=== PATIENT | male | born 1990 | race Caucasian/White ===

== ENCOUNTER 2018-05-04 18:30 | Emergency (ER) | payer OTHER ==
[2018-05-04 18:36] VITALS: BP 143/91; PULSE 77; TEMP 98.2; BMI 24.8
--- NOTE | 2018-05-04 19:41 | PDOC ---
History of Present Illness - General History Source: Patient Exam Limitations: No Limitations - History of Present Illness Initial Comments: 05/04/18 20:11 The patient is a 27-year-old male, with no significant past medical history, who presents to the ED with 2-3 days of left-sided chest pain and 1 week of intermittent shortness of breath. The patient describes the chest pain as intermittent, last 3 seconds before resolving on its own, sharp in sensation, 8/ 10 in severity, nonradiating, nonexertional, and nonpleuritic. The chest pain is accompanied by shortness of breath that he states comes on when he is eating. He states that he feels like food is getting stuck in his chest and that he is not able to take in an adequate amount of oxygen. The patient reports that he was able to engage in his boxing workout routine on without feeling short of breath. He reports 1 episode of nonbilious, nonbloody emesis yesterday which has now resolved. While in the ER, the patient was complaining of feeling dizzy while sitting in the stretcher. As per , the patient would normally drinks 4-5 cups of coffee a day and he has cut back on his caffeine intake. The patient denies any fevers, chills, nausea, vomiting, diarrhea, or abdominal pain. Denies any recent sick contacts or recent travel. Denies any lower extremity swelling or changes in sensation. Allergies: NKA Surgical History: None reported. Social History: Denies any tobacco use. Family History: Pericarditis (Brother 2 years ago). <Lety Gordon - Last Filed: 05/04/18 20:24> <Glory Nina - Last Filed: 05/05/18 06:20> - General Chief Complaint: Shortness of Breath Stated Complaint: sob Time Seen by Provider: 05/04/18 19:22 Past History <Lety Gordon - Last Filed: 05/04/18 20:24> - Past Medical History COPD: No Other medical history: denies - Suicide/Smoking/Psychosocial Hx Smoking History: Never smoked Hx Alcohol Use: No Drug/Substance Use Hx: No Substance Use Type: None <Glory Nina - Last Filed: 05/05/18 06:20> - Past Medical History Allergies/Adverse Reactions: Allergies Allergy/AdvReac Type Severity Reaction Status Date / Time No Known Allergies Allergy Verified 05/04/18 18:31 Home Medications: Ambulatory Orders Pantoprazole Sodium [Protonix -] 40 mg PO DAILY #20 tablet.ec 05/04/18 Review of Systems - Review of Systems Able to Perform ROS?: Yes Comments:: 05/04/18 20:11 CONSTITUTIONAL: Absent: fever, chills, diaphoresis, generalized weakness, malaise, loss of appetite HEENT: Absent: rhinorrhea, nasal congestion, throat pain, throat swelling, difficulty swallowing, mouth swelling, ear pain, eye pain, visual Changes CARDIOVASCULAR: Present: (+)Chest pain Absent: syncope, palpitations, irregular heart rate, lightheadedness, peripheral edema RESPIRATORY: Present: (+) Shortness of breath. Absent: cough, dyspnea with exertion, orthopnea, wheezing, stridor, hemoptysis GASTROINTESTINAL: Absent: abdominal pain, abdominal distension, nausea, vomiting, diarrhea, constipation, melena, hematochezia GENITOURINARY: Absent: dysuria, frequency, urgency, hesitancy, hematuria, flank pain, genital pain MUSCULOSKELETAL: Absent: myalgia, arthralgia, joint swelling SKIN: Absent: rash, itching, pallor HEMATOLOGIC/IMMUNOLOGIC: Absent: easy bleeding, easy bruising, lymphadenopathy, frequent infections ENDOCRINE: Absent: unexplained weight gain, unexplained weight loss, heat intolerance, cold intolerance NEUROLOGIC: Present: (+)Dizziness. Absent: headache, focal weakness or paresthesias, unsteady gait, seizure, mental status changes, bladder or bowel incontinence PSYCHIATRIC: Absent: anxiety, depression, suicidal or homicidal ideation, hallucinations. <Lety Gordon - Last Filed: 05/04/18 20:24> *Physical Exam - Vital Signs Last Vital Signs Temp Pulse Resp BP Pulse Ox 98.2 F 77 18 143/91 100 05/04/18 18:31 05/04/18 18:31 05/04/18 18:31 05/04/18 18:31 05/04/18 18:31 - Physical Exam Comments: 05/04/18 20:13 GENERAL: Well developed, well nourished. Awake and alert. No acute distress. HEENT: Normocephalic, atraumatic. PERRLA, EOMI. No conjunctival pallor. Sclera are non- icteric. Moist mucous membranes. Oropharynx is clear. NECK: Supple. Full ROM. No JVD. Carotid pulses 2+ and symmetric, without bruits. No thyromegaly. No lymphadenopathy. CARDIOVASCULAR: Regular rate and rhythm. No murmurs, rubs, or gallops. Distal pulses are 2+ and symmetric. PULMONARY: No evidence of respiratory distress. Lungs clear to auscultation bilaterally. No wheezing, rales or rhonchi. ABDOMINAL: (+)Mild tenderness over the xiphoid process. Soft. Non-distended. No rebound or guarding. No organomegaly. Normoactive bowel sounds. MUSCULOSKELETAL Normal range of motion at all joints. No bony deformities or tenderness. No CVA tenderness. EXTREMITIES: No cyanosis. No clubbing. No edema. No calf tenderness. SKIN: Warm and dry. Normal capillary refill. No rashes. No jaundice. NEUROLOGICAL: Alert, awake, appropriate. Cranial nerves 2-12 intact. No deficits to light touch and temperature in face, upper extremities and lower extremities. No motor deficits in the in face, upper extremities and lower extremities. Normoreflexic in the upper and lower extremities. Normal speech. Toes are down- going bilaterally. Gait is normal without ataxia. PSYCHIATRIC: Cooperative. Good eye contact. Appropriate mood and affect. <Lety Gordon - Last Filed: 05/04/18 20:24> - Vital Signs Last Vital Signs Temp Pulse Resp BP Pulse Ox 98.2 F 77 18 143/91 100 05/04/18 18:31 05/04/18 18:31 05/04/18 18:31 05/04/18 18:31 05/04/18 18:31 <Glory Nina - Last Filed: 05/05/18 06:20> ED Treatment Course - LABORATORY CBC & Chemistry Diagram: 05/04/18 19:55 05/04/18 19:55 - Medications Given in the ED: ED Medications Discontinued Medications Generic Name Dose Route Start Last Admin Trade Name Nithinq PRN Reason Stop Dose Admin Pantoprazole Sodium 40 mg 05/04/18 19:42 05/04/18 20:01 Protonix Iv IVPB 05/04/18 19:43 40 mg ONCE ONE Administration <Lety Gordon - Last Filed: 05/04/18 20:24> - LABORATORY CBC & Chemistry Diagram: 05/04/18 19:55 05/04/18 19:55 <Glory Nina - Last Filed: 05/05/18 06:20> Medical Decision Making - Medical Decision Making Documentation has been prepared under my direction and personally reviewed by me in its entirety. I attest that this documented accurately reflects all work, treatment, procedures and medical decision making performed by me. As noted above, this 27 y.o. male presents with a few day history of intermittent, very brief episodes of chest pain. The patient also has episodes of shortness of breath especially after eating. However, patient has participated in strenuous physical exercised (boxing) without shortness of breath or chest pain. He has had sensation of food getting stuck in his esophagus and a past history of GERD. He is currently not on any PPI or H2 everardo. He has no risk factors for coronary artery disease or acute thromboembolic process. Exam as noted Twelve-lead electrocardiogram is performed and interpreted by me: Normal sinus rhythm at 69 bpm; axis, intervals and wave forms are all normal. There is no evidence of acute ST or T-wave abnormalities. Laboratory evaluation including CBC/chemistry profile/troponin are all normal. Patient had been given Protonix 40 mg IV. Clinical presentation most consistent with atypical chest pain; GERD exacerbation. Patient will be discharged with prescription for Protonix 40 mg daily. He should avoid triggers for GERD and these were reviewed for him. He should follow-up with his PMD within the next few days; he should return to the emergency room if he develops shortness of breath/persistent chest pain, especially with exertion. <Glory Nina - Last Filed: 05/05/18 06:20> *DC/Admit/Observation/Transfer - Attestations Scribe Attestion: 05/04/18 20:14 Documentation prepared by Lety Gordon, acting as medical physics professor for Glory Nina MD. <Lety Gordon - Last Filed: 05/04/18 20:24> <Glory Nina - Last Filed: 05/05/18 06:20> Diagnosis at time of Disposition: Atypical chest pain GERD (gastroesophageal reflux disease) Qualifiers: Esophagitis presence: with esophagitis Qualified Code(s): K21.0 - Gastro- esophageal reflux disease with esophagitis - Discharge Dispostion Disposition: HOME Condition at time of disposition: Stable - Prescriptions Prescriptions: Pantoprazole Sodium [Protonix -] 40 mg PO DAILY #20 tablet.ec - Patient Instructions Printed Discharge Instructions: DI for Gastroesophageal Reflux Disease (GERD), DI for Atypical Chest Pain Additional Instructions: protonix 40mg daily avoid coffee/alcohol/acidic foods, especially after 3 PM followup with your doctor within 2-3 days return to ER if pain worsens or you develop vomiting/fever
[2018-05-04] MEDS ORDERED: PANTOPRAZOLE SODIUM 40 MG VIAL IVPB ONE (19:42)
[2018-05-04] MEDS ORDERED: PANTOPRAZOLE SODIUM 40 MG VIAL ONE (19:57)
[2018-05-04 20:15] LABS: EOS % 1.4 % (0-4.5); HEMOGLOBIN 13.9 GM/dl (11.7-16.9); LYMPH % 36.2 % (8-40); MCHC 33.1 g/dl (32.0-35.9); MEAN CELL VOLUME 81.5 fl (80-96); MEAN PLT VOLUME 7.9 fl (7.5-11.1); MONO % 7.6 % (3.8-10.2); NEUT % 53.8 % (42.8-82.8); PLATELET COUNT 260 K/MM3 (134-434); RBC 5.16 M/mm3 (4.00-5.60); WHITE BLOOD COUNT 7.5 K/mm3 (4.0-10.8)
[2018-05-04 20:25] LABS: ALBUMIN 4.4 g/dl (3.5-5.0); ALK PHOS 44 U/L (32-92); ANION GAP 6 MMOL/L (8-16); BILIRUBIN,TOTAL 0.7 mg/dl (0.2-1.0); BLOOD UREA NITROGEN 15 mg/dl (7-18); CALCIUM 9.6 mg/dl (8.4-10.2); CHLORIDE 103 mmol/L (98-107); CO2 30 mmol/L (22-28); GLUCOSE,RANDOM 88 mg/dl (74-106); POTASSIUM 4.1 mmol/L (3.5-5.1); SGOT/AST 19 U/L (10-42); SGPT/ALT 18 U/L (10-40); SODIUM 139 mmol/L (136-145); TOT PROT 6.8 g/dl (6.4-8.3)
--- NOTE | 2018-05-06 12:12 | EKG ---
Test Reason : Blood Pressure : / mmHG Vent. Rate : 069 BPM Atrial Rate : 069 BPM P-R Int : 168 ms QRS Dur : 096 ms QT Int : 392 ms P-R-T Axes : 063 051 054 degrees QTc Int : 420 ms NORMAL SINUS RHYTHM POSSIBLE LEFT ATRIAL ENLARGEMENT RSR' OR QR PATTERN IN V1 SUGGESTS RIGHT VENTRICULAR CONDUCTION DELAY BORDERLINE ECG NO PREVIOUS ECGS AVAILABLE Confirmed by VERO BUENROSTRO, FERNANDO ([id number]) on 05/06/2018 12:12:20 PM Referred By: DR TALBOT Confirmed By:FERNANDO PHAM MD
== END 2018-05-04 21:58 | disposition home or self-care (01) ==
LOC: FER 18:30
PROC: 3E033GC Introduction of Other Therapeutic Substance into Peripheral Vein, Percutaneous Approach (ICD-10-PCS; principal; 2018-05-04)
DX: R07.89 Other chest pain (principal); K21.0 Gastro-esophageal reflux disease with esophagitis
CPT/HCPCS: 36415; 71046-TC-FY; 80053; 82550; 82553; 84484; 85025; 85651; 93005; 99282-25